=== PATIENT | female | born 1960 | race Caucasian/White ===

== ENCOUNTER 2017-06-27 08:34 | Day surgery (SDC) | payer OTHER ==
[2017-06-27] MEDS ORDERED: FENTAnyl 50 MCG/ML VIAL (10:03)
[2017-06-27] MEDS ORDERED: MIDAZOLAM 1 MG/ML 2 ML INJ ×3 (10:03→10:04)
== END 2017-06-27 13:33 | disposition home or self-care (01) ==
LOC: GIL 08:34
DX: Z12.11 Encounter for screening for malignant neoplasm of colon (principal); K64.8 Other hemorrhoids; K63.89 Other specified diseases of intestine; E11.9 Type 2 diabetes mellitus without complications
CPT/HCPCS: 45378; 82962